=== PATIENT | female | born 1960 | race Caucasian/White ===

== ENCOUNTER 2023-11-23 14:28 | Observation (INO) | payer BC ==
[2023-11-23] MEDS: fentaNYL 100 MCG/2 ML SDV IVPUSH ONE (15:06)
[2023-11-23] MEDS: Cyclobenzaprine 10 MG Tab PO ONE (16:18)
[2023-11-23] MEDS ORDERED: Naloxone 0.4 MG/ML SDV IVPUSH PRN ×2 (16:22→20:23)
[2023-11-23] MEDS: HYDROmorphone 0.5 MG/0.5 ML Syringe IVPUSH ONE ×2 (17:11→20:06)
[2023-11-23] MEDS: Ketorolac 15 MG/ML SDV IVPUSH ONE (18:26)
[2023-11-23] MEDS ORDERED: HYDROmorphone 0.5 MG/0.5 ML Syringe IVPUSH PRN (20:23)
[2023-11-23] MEDS ORDERED: Magnesium Hydroxide 400 MG/5 ML Susp 30 ML Cup PO PRN (20:23)
[2023-11-23] MEDS ORDERED: Acetaminophen 325 MG Tab PO PRN (20:23)
[2023-11-23] MEDS ORDERED: Ondansetron 4 MG/2 ML SDV IV PRN (20:23)
[2023-11-23] MEDS ORDERED: Melatonin 3 MG Tab PO PRN (20:23)
[2023-11-23] MEDS ORDERED: Ondansetron 4 MG Tab.DIS PO PRN (20:23)
[2023-11-23] MEDS: Diltiazem IR 30 MG Tab PO SCH (21:49)
[2023-11-23] MEDS: Acetaminophen 325 MG Tab PO SCH (21:49)
[2023-11-23] MEDS: Ketorolac 15 MG/ML SDV IVPUSH SCH (21:50)
[2023-11-23] MEDS: Sennosides/Docusate Sodium 50-8.6 MG Tab PO SCH (21:50)
[2023-11-24] MEDS: Cyclobenzaprine 10 MG Tab PO PRN (04:20)
[2023-11-24 05:21] LABS: HEMATOCRIT 32.8 % (34.3-46.0); HEMOGLOBIN 11.7 g/dL (11.2-15.5); MEAN CORPUSCULAR HEMOGLOBIN 30.2 pg (31.6-35.5); MEAN CORPUSCULAR HGB CONC 35.7 g/dL (31.6-35.5); MEAN CORPUSCULAR VOLUME 84.5 fL (81.4-99.0); RED BLOOD CELL COUNT 3.88 M/uL (3.77-5.24)
[2023-11-24 05:39] LABS: CALCIUM 8.3 mg/dL (8.5-10.1); EST CRCL DRUG DOSING (CG) 52.49 mL/min; POTASSIUM,K 3.3 mmol/L (3.6-5.2)
[2023-11-24 05:49] LABS: ANION GAP 12.3 mmol/L (5.0-14.0)
[2023-11-24] MEDS: Levothyroxine 25 MCG Tab PO SCH (07:15)
[2023-11-24] MEDS: Acetaminophen 325 MG Tab PO SCH (09:13)
[2023-11-24] MEDS: Potassium Chloride 20 MEQ Tab.ER PO ONE ×2 (09:21→16:49)
[2023-11-24] MEDS: oxyCODONE 5 MG Tab PO PRN (09:21)
[2023-11-25] MEDS: Ketorolac 10 MG Tab PO PRN (12:22)
== END 2023-11-26 11:38 | disposition home or self-care (01) ==
LOC: JP.ED 14:28 → JP.ICU 19:22
PROVIDERS: ADMIT Registered Nurse; ATTEND Hospitalist
DX: S76.302A Unspecified injury of muscle, fascia and tendon of the posterior muscle group at thigh level, left thigh, initial encounter (principal); S81.802A Unspecified open wound, left lower leg, initial encounter; E03.9 Hypothyroidism, unspecified; Z79.890 Hormone replacement therapy; Z79.899 Other long term (current) drug therapy; X58.XXXA Exposure to other specified factors, initial encounter; Z88.8 Allergy status to other drugs, medicaments and biological substances
CPT/HCPCS: 36415; 72170; 72195; 80048; 84132; 85018; 85027; 96374; 96375; 96376; 97110; 97116; 97161; 97165; 97535; 99222; 99232; 99238; 99285; A9270; G0378; J1170; J1885; J3010